=== PATIENT | female | born 1980 | race African-American/Black ===

== ENCOUNTER 2019-01-07 09:31 | Inpatient (IN) ==
[2019-01-07] MEDS ORDERED: NS 1,000 ML IV ONE (10:08)
[2019-01-07] MEDS ORDERED: HUMULIN R IV ONE (10:08)
--- NOTE | 2019-01-07 10:44 | Diag Imaging Result Doc PS360 ---
EXAM: US NON VASC EXTREMITY LIMITED HISTORY: Possible abscess TECHNIQUE: Limited ultrasound of the left upper back COMPARISON: None. FINDINGS: Ultrasound over the area of concern in the left back performed. No solid mass, cyst, or other irregular fluid collection identified. IMPRESSION: Negative exam. Electronically signed by Huang Mariscal 01/07/2019 10:42 AM
--- NOTE | 2019-01-07 10:51 | PROVIDER DOCUMENTATION ---
HPI-General Adult - General Chief Complaint: High Blood Sugar Stated Complaint: insect bite Time Seen by Provider: 01/07/19 09:51 Source: patient Allergies/Adverse Reactions: Patient Allergies Allergy/AdvReac Type Severity Reaction Status Date / Time No Known Allergies Allergy Verified 01/23/17 15:11 Home Medications: Home Medication List Medication Instructions Recorded Confirmed Last Taken Type Albuterol Sulfate Inhaler 2 puff INH Q6H PRN PRN 09/04/12 01/23/17 06/13/15 History [Ventolin Hfa] Amlodipine [Norvasc] 10 mg PO DAILY 09/04/12 01/23/17 06/13/15 History Insulin Glargine [Lantus] 40 unit SQ BID 09/04/12 01/23/17 06/13/15 History Losartan/Hctz [Hyzaar 50/12.5 mg] 1 each PO DAILY 09/04/12 01/23/17 06/13/15 History SIMVAstatin [Zocor] 10 mg PO QHS 09/04/12 01/23/17 06/13/15 History Albuterol [Albuterol Neb] 1 unit NEB BID 03/02/15 01/23/17 06/13/15 History Insulin Aspart [Novolog Flexpen] 100 unit SQ DIRECTED 03/02/15 01/23/17 06/13/15 History Omeprazole 20 mg PO DAILY #20 tablet. 06/13/15 01/23/17 Unknown Rx Ibuprofen [Motrin] 800 mg PO Q8H PRN PRN #20 tablet 01/23/17 Unknown Rx Omeprazole [Prilosec] 20 mg PO DAILY@0700 #20 capsule 01/23/17 Unknown Rx Penicillin V Potassium 500 mg PO BID #20 tablet 01/23/17 Unknown Rx Tramadol [Ultram] 50 mg PO Q8HR #20 tablet 01/23/17 Unknown Rx - History of Present Illness -Gen Adult Nature of Presenting Problems: Pt. is 38yof that presents with c/o sore spot on her back that she noticed this morning. She reports it just showed up and denies any known injury. Pt. reports she is diabetic and her blood sugar was high this morning. She has no other complaints. Location of Pain/Injury: reports: back. denies: none, head, face, mouth, neck, chest, upper extremity, hand(s), abdomen, pelvis, genitalia, lower extremity, feet, upper body, lower body, generalized, other Pain Radiation: reports: no radiation. denies: arm(s), back, buttocks, chest, epigastric, feet, groin, jaw, flank (L), legs (lower), LLQ, LUQ, neck, periumbilical, flank (R), RLQ, RUQ, shoulder(s), scapula, scrotal, sternal notch, suprapubic, legs (upper), urethral, vaginal, other Quality of Pain: reports: aching. denies: burning, cramping, pressure, sharp, throbbing, tightness Severity: reports: moderate. denies: mild, severe Onset/Duration: reports: abrupt, this morning Timing: reports: still present. denies: improving, intermittent, getting worse Context/Activities at Onset: reports: none. denies: light activity, moderate activity, vigorous activity, recent emotional stress, recent physical stress, recent trauma history, possible bad food, cold exposure, eating, out of country travel, rest, sleep, sexual activity, other Modifying Factors: improves with: nothing. worse with: palpation Associated Symptoms: reports: rash (There is a large linear erythemic area on the left mid back that is indurated and hot to the touch with tenderness to palpation. There are no raised areas noted.). denies: denies symptoms, anxiety, arm pain, back/neck pain, chest pain, constipation, cough, diaphoresis, diarrhea, dizziness, EENT symptoms, fatigue, fever/chills, genitourinary problems, headaches, heartburn, joint pain, loss of appetite, malaise, muscle aches, sinus congestion/drainage, nausea, seizure, shortness of breath, sensory/motor loss, pain with inspiration, swelling/mass in abdomen, syncope, v omiting, weakness, trouble walking, other Similar Symptoms Previously?: No Recently seen or treated by another doctor?: No - Diabetes Related Context Context: reports: high blood sugar Review of Systems - Adult - REVIEW OF SYSTEMS - ADULT Constitutional: reports: no symptoms reported Eyes: reports: no symptoms reported Ears, Nose, Mouth & Throat: reports: no symptoms reported Cardiovascular: reports: no symptoms reported Respiratory: reports: no symptoms reported Gastrointestinal: reports: no symptoms reported Genitourinary: reports: no symptoms reported Musculoskeletal: reports: no symptoms reported Integumentary: reports: see HPI, skin thickening (There is a large linear erythemic area on the left mid back that is indurated and hot to the touch with tenderness to palpation. There are no raised areas noted.). denies: hair loss, mole changes, rash Neurological: reports: no symptoms reported Psychiatric: reports: no symptoms reported Past History - Adult - PAST MEDICAL HISTORY-ADULT Review of Records: reports: Old Records Reviewed, Nursing Assessment Review, Medications Reviewed, Social history reviewed & non-contributory. Major Childhood Illnesses: reports: denies history Cardiovascular: reports: HTN, hyperlipidemia Respiratory: reports: asthma Gastrointestinal: reports: denies history Obstetrical/Gynecological: reports: denies history Genitourinary: reports: denies history Musculoskeletal: reports: denies history Neurological: reports: denies history Endocrine/Immune: reports: Diabetes Other Conditions: reports: denies history - PRIOR SURGERIES/PROCEDURES Surgical/Procedure History: reports: none - IMMUNIZATION STATUS Childhood Immunizations: See Nurse Assessment Flu Vaccine: See Nurse Assessment - FAMILY HISTORY Family History: reviewed, not pertinent - SOCIAL HISTORY Smoking: denies Physical Exam-General - PHYSICAL EXAM-ADULT Initial Vital Signs Reviewed: Yes - CONSTITUTIONAL General Appearance: alert, no apparent distress, obese. negative: anxious, obt unded, combative - EYES Eyes: PERRL/EOMI, pink conjunctivae - HEAD, EARS, NOSE, MOUTH & THROAT HENMT: normocephalic/atraumatic, moist mucous membranes - NECK Neck: non-tender, full range of motion, supple, normal inspection. negative: lymphadenopathy, trachial deviation, thyromegaly - RESPIRATORY Respiratory: lungs clear, normal breath sounds - CARDIOVASCULAR Cardiovascular: normal peripheral pulses, regular rate, rhythm, no edema - GASTROINTESTINAL (ABDOMEN) Abdominal Exam: normal bowel sounds, non tender, soft - LYMPHATIC Lymphatic: no adenopathy. negative: axilla node tender, cervical node tenderness - MUSCULOSKELETAL Back Exam: normal inspection, no CVA tenderness, no vertebral tenderness Extremity: normal range of motion, non-tender, normal gait, normal inspection Peripheral Pulses: radial (R): 2+, radial (L): 2+ - SKIN Integumentary: erythema (There is a large linear erythemic area on the left mid back that is indurated and hot to the touch with tenderness to palpation. There are no raised areas noted.), tenderness (There is a large linear erythemic area on the left mid back that is indurated and hot to the touch with tenderness to palpation. There are no raised areas noted.), warm (There is a large linear erythemic area on the left mid back that is indurated and hot to the touch with tenderness to palpation. There are no raised areas noted.). negative: cyanosis, jaundice, pallor - NEUROLOGIC Neurologic: grossly normal, no motor/sensory deficits. negative: aphasia, facial droop, focal weakness, motor weakness, sensory deficit - PSYCHIATRIC Psych/Mental Status: normal mood/affect, normal thought content, normal thought process, oriented x 3. negative: anxious, paranoid, tearful Progress - PLAN OF CARE/RESULTS Progress/Plan/Lab Results: Vital Signs - 8 hr 01/07/19 09:37 01/07/19 10:12 Temperature 98.1 F Pulse Rate 95 H 96 H Respiratory Rate 19 18 Blood Pressure 155/81 140/77 O2 Sat by Pulse Oximetry 97 99 Laboratory Results - last 24 hr 01/07/19 09:40 POC Glucose 366 H Orders Category Date Time Status Saline Loc NOW Care 01/07/19 10:07 Active US NON VASC EXTREMITY LIMITED [US] Stat Exams 01/07/19 10:09 Completed ACETONE SERUM [CHEM] Stat Lab 01/07/19 10:08 Uncollected BLOOD CULTURE [BLDCUL] Stat Lab 01/07/19 10:08 Uncollected CBC WITH ELECTRONIC DIFF [HEME] Stat Lab 01/07/19 10:08 Uncollected COMPREHENSIVE METABOLIC PANEL [CHEM] Stat Lab 01/07/19 10:08 Uncollected LACTATE, PLASMA [CHEM] Stat Lab 01/07/19 10:08 Uncollected URINALYSIS W/POSS RFLX CULT [URINALYSIS] Stat Lab 01/07/19 10:08 Uncollected 0.9% Sodium Chloride Inj [Ns] 1,000 ml Med 01/07/19 10:08 Active IV 999 mls/hr Insulin Human Regular [Humulin R] Med 01/07/19 10:08 Discontinued 10 unit IV NOW ONE Dr. Royal at bedside for evaluation Laboratory Tests 01/07/19 01/07/19 01/07/19 09:40 10:50 10:50 WBC 14.53 H RBC 4.17 L Hgb 11.0 L Hct 35.1 L MCV 84.2 MCH 26.4 L MCHC 31.3 L RDW Std Deviation 13.4 Plt Count 453 H MPV 9.8 Immature Gran % (Auto) 0.6 H Neut % (Auto) 74.4 Lymph % (Auto) 13.4 L [place] % (Auto) 10.2 H Eos % (Auto) 1.2 Baso % (Auto) 0.2 Immature Gran # (Auto) 0.09 H Neut # (Auto) 10.81 H Lymph # (Auto) 1.94 [place] # (Auto) 1.48 H Eos # (Auto) 0.18 Baso # (Auto) 0.03 Sodium 137 Potassium 4.2 Chloride 99 Carbon Dioxide 20 L Anion Gap 18 BUN 13 Creatinine 1.2 H Estimated GFR/1.73 m2 > 60 BUN/Creatinine Ratio 11 Glucose 384 H POC Glucose 366 H Calculated Osmolality 290 Calcium 8.8 Total Bilirubin 0.34 AST 19 ALT 15 Alkaline Phosphatase 77 Total Protein 8.0 Albumin 3.6 Globulin 4.4 Albumin/Globulin Ratio 0.8 Urine Source Urine Color Urine Turbidity Urine pH Ur Specific [place] Urine Protein Ur Glucose (Stick) Ur Ketones (Stick) Urine Blood Urine Nitrite Urine Bilirubin Urobilinogen Dipstick Urine Leukocytes Urine WBC (Auto) Urine RBC (Auto) U Epithel Cells (Auto) Urine Bacteria (Auto) Urine Crystals Small Round Cells Urine Casts Urine Yeast-like Cells Acetone Level NEGATIVE 01/07/19 01/07/19 11:40 12:02 WBC RBC Hgb Hct MCV MCH MCHC RDW Std Deviation Plt Count MPV Immature Gran % (Auto) Neut % (Auto) Lymph % (Auto) [place] % (Auto) Eos % (Auto) Baso % (Auto) Immature Gran # (Auto) Neut # (Auto) Lymph # (Auto) [place] # (Auto) Eos # (Auto) Baso # (Auto) Sodium Potassium Chloride Carbon Dioxide Anion Gap BUN Creatinine Estimated GFR/1.73 m2 BUN/Creatinine Ratio Glucose POC Glucose 309 H Calculated Osmolality Calcium Total Bilirubin AST ALT Alkaline Phosphatase Total Protein Albumin Globulin Albumin/Globulin Ratio Urine Source CLEAN CATCH Urine Color YELLOW Urine Turbidity CLEAR Urine pH 6.5 Ur Specific [place] 1.026 Urine Protein NEGATIVE Ur Glucose (Stick) >1000 A Ur Ketones (Stick) TRACE A Urine Blood NEGATIVE Urine Nitrite NEGATIVE Urine Bilirubin NEGATIVE Urobilinogen Dipstick NORMAL Urine Leukocytes NEGATIVE Urine WBC (Auto) <10 Urine RBC (Auto) <10 U Epithel Cells (Auto) <10 Urine Bacteria (Auto) NEGATIVE Urine Crystals NONE SEEN Small Round Cells NONE SEEN Urine Casts NONE SEEN Urine Yeast-like Cells NONE SEEN Acetone Level Discussed results and plan of care with patient. Patient agrees with plan and verbalizes understanding. Result Diagrams: 01/07/19 10:50 01/07/19 10:50 - ULTRASOUND (By Radiology) 1 US Study: other ([facility] [address] , [address], [place] [address] Department of Imaging Patient: MIRNA ASTUDILLO Date: #: [id number] : 1980ADM [id number] Age/Sex: 38/FRoom/Bed: Loc: ED Ordering Physician: Rebeca Hollingsworth Family Physician: None,PCP Reason for Procedure: Possible abscess ___ Signed EXAM: US NON VASC EXTREMITY LIMITED HISTORY: Possible abscess TECHNIQUE: Limited ultrasound of the left upper back COMPARISON: None. FINDINGS: Ultrasound over the area of concern in the left back performed. No solid mass, cyst, or other irregular fluid collection identified. IMPRESSION: Negative exam. Electronically signed by Huang Mariscal 01/07/2019 10:42 AM 01/07/19 1042 Interpreting Physician: Huang Mariscal MD Dictated Date/Time: 01/07/19 1041 cc: Rebeca Hollingsworth; None,PCP) US Results: See note - CONSULTS/PCP/HOSPITALIST Notification #1 *Consult/PCP/Hospitalist*: Adina HENSLEY for Dr. Balderas Time Discussed: 13:12 Reason/Comments: Admission Consult Disposition: Will see in ED, Admit Departure - Departure Date of Disposition Decision: 01/07/19 Time of Disposition Decision: 12:59 DIAGNOSIS: Hyperglycemia due to type 1 diabetes mellitus Cellulitis Qualifiers: Site of cellulitis: trunk Site of cellulitis of trunk: back Qualified Code(s): L03.312 - Cellulitis of back [any part except buttock] Disposition: ADMITTED INPATIENT 09 Certified Medical Emergency: Emergent Condition: Stable Additional Freetext Instructions: ED Follow Up Instructions: You have been treated by a care provider in the Emergency Department. These instructions are being provided to you so you can have an understanding of how to care for yourself upon discharge. Upon discharge from the Emergency Department, you are responsible for making arrangements for follow-up care by a physician of your choice. Take all prescribed medications as directed. Return to the Emergency Department immediately for any new or worsening symptoms. You may call the Physician Referral phone number at [phone] to obtain a list of Physicians who are taking new patients. Referrals and Follow-Ups: None,PCP [Primary Care Provider] - - Critical Care Note This patient required my direct & personal management of CC.: No Attestation - Physician/ JESSICA Attestation Patient care was provided by Advanced Practice Provider:: Yes Advanced Practice Provider:: Rebeca Hollingsworth Advanced Practice Provider documentation review:: The Mid-level provider documentation, treatment plan and medical decision making was reviewed by the physician who agrees with all treatment and medical decision making by the P. The physician spent face to face time with patient:: Yes Advanced Practice Provider documentation review:: Supervising physician onsite and consulted in the evaluation and care of this patient. The physician did have a face to face encounter with the patient.
[2019-01-07 11:12] LABS: BASO# 0.03 X1000 (0.0-0.2); BASO% 0.2 % (0.0-0.8); EOS# 0.18 X1000 (0.0-0.7); EOS% 1.2 % (0.0-10.0); HEMATOCRIT 35.1 % (37.0-47.0); IMM GRAN# 0.09 X1000 (0.0-0.04); IMM GRAN% 0.6 % (0.0-0.5); LYMPH# 1.94 X1000 (1.2-3.4); LYMPH% 13.4 % (20.5-51.1); MCH 26.4 PG (27-31); MCHC 31.3 g/dL (33-37); MCV 84.2 FL (81-99); MONO# 1.48 X1000 (0.11-0.59); MONO% 10.2 % (1.7-9.3); MPV 9.8 FL (7.4-10.4); NEUT# 10.81 X1000 (1.4-6.5); NEUT% 74.4 % (42.2-75.2); PLT 453 X1000 (130-400); RBC 4.17 XMIL (4.2-5.4); RDW 13.4 % (11.5-14.5); WBC 14.53 X1000 (4.8-10.8)
[2019-01-07 11:20] LABS: ACETONE SERUM NEGATIVE (NEGATIVE)
[2019-01-07] MEDS ORDERED: VANCOMYCIN 1 GM/NS 1 GM/250 ML IVPB IV ONE (11:27)
[2019-01-07 11:28] LABS: AGAP 18; ALB/GLOB RATIO 0.8; ALBUMIN 3.6 g/dL (3.5-5.0); ALKALINE PHOSPHATASE 77 U/L (32-104); BUN 13 mg/dL (8-22); CALCIUM 8.8 mg/dL (8.8-10.2); CHLORIDE 99 mmol/L (98-107); COSMO 290; CREATININE 1.2 mg/dL (0.5-0.9); ESTIMATED GFR > 60; GLUCOSE 384 mg/dL (70-104); GOT 19 U/L (10-30); GPT 15 U/L (10-36); POTASSIUM 4.2 mmol/L (3.5-5.1); SODIUM 137 mmol/L (136-145); TCO2 20 mmol/L (25-35); TOTAL BILIRUBIN 0.34 mg/dL (0.20-1.00)
[2019-01-07 11:48] LABS: URINE SOURCE CLEAN CATCH
[2019-01-07 11:53] LABS: BILIRUBIN URINE NEGATIVE (NEGATIVE); BLOOD URINE NEGATIVE (NEGATIVE); COLOR YELLOW; GLUCOSE URINE >1000 mg/dL (NEGATIVE); KETONE URINE TRACE mg/dL (NEGATIVE); LEUKOCYTES URINE NEGATIVE (NEGATIVE); NITRITE URINE NEGATIVE (NEGATIVE); PH URINE 6.5; PROTEIN URINE NEGATIVE (NEGATIVE); SP GRAVITY URINE 1.026; TURBIDITY URINE CLEAR (CLEAR); UROBILINOGEN URINE NORMAL (NORMAL)
[2019-01-07 11:57] LABS: UR EPITHELIAL CELLS <10 /HPF (<10); URINE BACTERIA NEGATIVE /HPF; URINE RBC <10 /HPF (<10); URINE WBC <10 /HPF (<10)
[2019-01-07 12:07] LABS: URINE CASTS NONE SEEN; URINE YEAST NONE SEEN
[2019-01-07 12:08] LABS: URINE CRYSTALS NONE SEEN; URINE SMALL ROUND CELLS NONE SEEN
[2019-01-07] MEDS ORDERED: LANTUS INSULIN SUBQ ONE (13:18)
[2019-01-07] MEDS ORDERED: LR 1,000 ML IV ONE (13:18)
[2019-01-07] MEDS ORDERED: TYLENOL PO PRN (13:24)
[2019-01-07] MEDS ORDERED: ZOFRAN IV PRN (13:24)
[2019-01-07 13:28] LABS: INR 1.04; PROTIME 14.4 Seconds (11.0-16.0)
[2019-01-07 13:29] LABS: PTT 40.4 Seconds (22.3-41.8)
[2019-01-07] MEDS ORDERED: CLINDAMYCIN 300 MG in NS 50 ML IV SCH (13:30)
[2019-01-07] MEDS ORDERED: ULTRAM PO PRN (14:15)
[2019-01-07 15:13] LABS: HEMOGLOBIN A1C 10.4 % (4.8-6.0)
[2019-01-07] MEDS ORDERED: HUMALOG SUBQ SCH (16:00)
[2019-01-07] MEDS: LOVENOX SUBQ SCH (16:26)
[2019-01-07] MEDS: HUMALOG SUBQ SCH ×4 (16:48→20:42)
[2019-01-07 17:16] LABS: AGAP 12; BUN 12 mg/dL (8-22); CHLORIDE 105 mmol/L (98-107); COSMO 280; ESTIMATED GFR > 60; GLUCOSE 185 mg/dL (70-104); POTASSIUM 3.8 mmol/L (3.5-5.1); SODIUM 138 mmol/L (136-145); TCO2 21 mmol/L (25-35)
[2019-01-07] MEDS: LANTUS INSULIN SUBQ SCH (20:42)
[2019-01-07] MEDS: ZOCOR PO SCH (20:43)
[2019-01-07] MEDS: CLINDAMYCIN 600 MG in NS 50 ML IV SCH (20:47)
[2019-01-07] MEDS: NORCO-5 PO PRN (22:53)
[2019-01-08] MEDS: CLINDAMYCIN 600 MG in NS 50 ML IV SCH ×3 (05:03→21:06)
[2019-01-08] MEDS: PRILOSEC PO SCH (06:23)
[2019-01-08] MEDS: HUMALOG SUBQ SCH ×9 (06:25→21:20)
[2019-01-08 07:26] LABS: BASO# 0.03 X1000 (0.0-0.2); BASO% 0.2 % (0.0-0.8); EOS# 0.24 X1000 (0.0-0.7); EOS% 1.6 % (0.0-10.0); HEMATOCRIT 33.2 % (37.0-47.0); HEMOGLOBIN 10.4 g/dL (12.0-16.0); IMM GRAN# 0.11 X1000 (0.0-0.04); IMM GRAN% 0.7 % (0.0-0.5); LYMPH# 2.02 X1000 (1.2-3.4); LYMPH% 13.2 % (20.5-51.1); MCH 26.6 PG (27-31); MCHC 31.3 g/dL (33-37); MCV 84.9 FL (81-99); MONO# 1.17 X1000 (0.11-0.59); MONO% 7.6 % (1.7-9.3); MPV 9.2 FL (7.4-10.4); NEUT# 11.75 X1000 (1.4-6.5); NEUT% 76.7 % (42.2-75.2); PLT 462 X1000 (130-400); RBC 3.91 XMIL (4.2-5.4); RDW 13.5 % (11.5-14.5); WBC 15.32 X1000 (4.8-10.8)
[2019-01-08 07:50] LABS: AGAP 13; ALB/GLOB RATIO 0.9; ALBUMIN 3.5 g/dL (3.5-5.0); ALKALINE PHOSPHATASE 73 U/L (32-104); BUN 10 mg/dL (8-22); CALCIUM 8.9 mg/dL (8.8-10.2); CHLORIDE 103 mmol/L (98-107); COSMO 278; ESTIMATED GFR > 60; GLUCOSE 187 mg/dL (70-104); GOT 14 U/L (10-30); GPT 13 U/L (10-36); MAGNESIUM 2.1 mg/dL (1.5-2.7); POTASSIUM 3.7 mmol/L (3.5-5.1); SODIUM 137 mmol/L (136-145); TCO2 21 mmol/L (25-35); TOTAL BILIRUBIN 0.35 mg/dL (0.20-1.00); TOTAL PROTEIN 7.4 g/dL (6.3-8.3)
[2019-01-08 07:51] LABS: CK PROFILE 120 U/L (24-173)
[2019-01-08 07:56] LABS: CHOLESTEROL 141 mg/dL (0-200); HDL 29 mg/dL (45-65); LDL 68 mg/dL; TRIGLYCERIDES 222 mg/dL (35-135); VLDL 44 mg/dL
[2019-01-08] MEDS: NORVASC PO SCH (09:08)
[2019-01-08] MEDS: HYZAAR 50/12.5 MG PO SCH ×3 (09:09→09:17)
[2019-01-08] MEDS: LANTUS INSULIN SUBQ SCH ×2 (09:25→21:23)
--- NOTE | 2019-01-08 09:26 | HISTORY AND PHYSICAL ---
PRIMARY CARE PHYSICIAN: [facility]. CHIEF COMPLAINT: Cellulitis. HISTORY OF PRESENT ILLNESS: This is a 38-year-old -[place] female who presents to the ER today with a large area to the medial to upper left back that is red, heated and warm to touch. States that she has been nauseous and thirsty, her finger stick blood sugar is greater than 300 today. States that she has had this area to her back for greater than a week. Woke up this morning and it was larger and painful and warm to touch. Denies any fever or chills. States this area has been very painful. Denies any drainage. States that she thought it was maybe a bug bite but is not for sure what though. Patient is a diabetic and blood sugars usually do stay less than 200 but today, they have been greater than 300. Patient states she has been more thirsty today and has had some nausea today after taking some Aleve for her pain. Patient does deny any fever with this pain. Patient is positive for a large area to the left to medial upper back that is warm and tender to touch. It is very edematous and reddened. Laboratory findings that were done in the ER, noted to have a white blood cell count of 14.53. Patient is noted to have a creatinine of 1.2. Initial glucose in the ER was 384. Initial lactate in the ER was 2.8. Ultrasound in the ER of the area of the back was done. It was negative. Patient was given 1 gram of vancomycin in the ER and was treated with 10 units of subcu insulin. She was given 1 liter of normal saline. There are no other acute findings at this time. PAST MEDICAL HISTORY: 1. Diabetes. 2. Hypertension. 3. Asthma. 4. Back pain. PAST SURGICAL HISTORY: section 2009. FAMILY HISTORY: Mother, diabetes. Mother and father, hypertension. SOCIAL HISTORY: The patient denies any smoking, drug or alcohol use. ALLERGIES: No known drug allergies. MEDICATIONS: 1. Albuterol nebulizers. 2. Ventolin inhalers. 3. Motrin 800 mg. 4. NovoLog FlexPen. 5. Omeprazole 20 mg p.o. 6. Penicillin V 500 mg tablets. 7. Amlodipine 10 mg tablets. 8. Lantus 40 units b.i.d. 9. Hyzaar 50/12.5 mg daily. 10.Simvastatin 10 mg daily. 11.Ultram 50 mg q.8 hours. LABS AND DIAGNOSTICS: White blood cell count 14.53, hemoglobin 11, hematocrit 35.1, platelets 453,000. Chemistry: Sodium 137, potassium 4.2, carbon dioxide 20, BUN 13, creatinine 1.2. GFR greater than 60. Glucose 384 on admission, now is 245. Total bilirubin 0.34. AST 19, ALT 15, alkaline phosphatase 77, creatinine kinase 162. Troponin less than 0.01. Plasma lactate 2.8. Acetone level is negative. Urine is positive for trace ketones and glucose greater than 1000. An ultrasound was in the ER of the left upper back. It is a negative exam. REVIEW OF SYSTEMS: A 12 point review of systems was done and was negative for everything except for what is stated in the HPI. PHYSICAL EXAMINATION: VITAL SIGNS: Temperature 98.1 degrees, pulse rate 96, respiratory rate 18, blood pressure 140/77. O2 saturation 99% on room air. Weight 219. Height 5 foot 7 inches. GENERAL: This is a well-nourished 38-year-old -[place] female lying in the bed in no acute distress. HEENT: Atraumatic, normocephalic. Pupils are equal, round, reactive to light. Mucous membranes are dry with no dentition. NECK: Supple. No lymphadenopathy. Trachea is midline. JVD is negative. CARDIOVASCULAR: No murmurs, gallops, or rubs appreciated. Regular rate and rhythm noted. RESPIRATORY: Lung sounds are equal with no chest excursion. Respirations are nonlabored with no accessory muscle usage. GASTROINTESTINAL: Abdomen is soft and nontender with bowel sounds present x4. Abdomen is nondistended. NEUROLOGICAL: Awake, alert and oriented x4. Cranial nerves intact. Follows all commands. MUSCULOSKELETAL: Full distal strength noted. No abnormalities. No deformities. EXTREMITIES: No cyanosis, clubbing. No edema. DP and PT pulses are present. SKIN: Warm, dry and intact. No rashes, bruises. There is a large area noted to the left mid to upper back that is edematous with erythema and warm to touch. ASSESSMENT: 1. Cellulitis. 2. Diabetes. 3. Acute kidney injury related to cellulitis. 4. Hypertension. PLAN: We will admit this patient to the medical floor and place this patient IVF and on clindamycin IV. Start the patient on moderate scale sliding scale insulin. Restart the patient on on her home Lantus. Start the patient on a diabetic diet. Place the patient on Telemetry and monitor the patient closely. We will reorder labs in the a.m. Dictated by AYDEN Rodriguez for Paul Balderas MD cc: Paul Balderas MD I agree with most components of history, physical, assessment and plan. A separate addendum has been dictated. NIRALI
--- NOTE | 2019-01-08 09:54 | HISTORY AND PHYSICAL ---
ADDENDUM REPORT Agree with most components of history, physical, assessment and plan. In brief, Ms. Gaston is a 38- year-old woman with past medical history of insulin dependent diabetes mellitus type 2, essential hypertension, hyperlipidemia, who came in with chief complaint of complaints of sore spot on her left back which she noticed this morning. She denies any known trauma or insect bite known to her. In the emergency room, she was found to have hyperglycemia, elevated creatinine, lactic acidosis with elevated anion gap. The ultrasound of the back did not detect any abscess, though it did have cellulitis, and considering her presentation, Hospitalist Team was consulted for the management. At the time of my evaluation, the patient appears to be alert and oriented and not in any acute distress. We discussed about exam findings, management, and I answered all of her questions. The patient's family is at bedside as well. Currently, vitals, she has been afebrile with temperature of 98.3, pulse rate 91, respiratory rate 20, blood pressure 160/80, saturating 100% on room air. PHYSICAL EXAMINATION: GENERAL: Obese. Not in any acute distress. HEENT: Oral cavity is moist. LUNGS: Air entry bilaterally equal. No wheeze, rhonchi or crackles. HEART: Normal, no rub or gallop. ABDOMEN: Soft, nontender. EXTREMITIES: No lower extremity edema. NEUROLOGICAL: She is alert and oriented x3. SKIN: On the posterior back on the left reveals 15 cm horizontally and 5 cm vertically and about 4 cm depth area of erythema, warmth and induration on which there are 2 pinpoint pustules towards its right border. There is no active drainage or discharge. The area is tender to palpation. DIAGNOSTIC DATA: Labs suggestive of normocytic anemia, leukocytosis, thrombocytosis, normal coagulation profiled. Elevated anion gap, lactic acidosis. Renal failure of undetermined chronicity and hyperglycemia. Microbiology: Blood cultures are in lab. Imaging: Ultrasound of that area does not detect any abscess. ASSESSMENT: 1. Acute cellulitis of left upper back, likely from folliculitis. 2. Elevated anion gap, lactic acidosis. 3. Renal failure of unclear chronicity. 4. Hyperglycemia and history of insulin dependent diabetes mellitus. 5. Normocytic anemia. PLAN: 1. I will start the patient on intravenous clindamycin. Follow up blood culture results. I will follow the cellulitis to see if it organizes into an abscess, at which Surgical Team would be consulted. 2. I will continue her home insulin regimen, and we will start her on sliding scale insulin as well. 3. I will continue her amlodipine for hypertension and simvastatin for hyperlipidemia, losartan/hydrochlorothiazide for hypertension and tramadol for chronic pain. Plan of care was discussed with the patient. All of her questions have been answered. cc: Paul Balderas MD
[2019-01-08] MEDS: NORCO-5 PO PRN ×2 (11:29→21:04)
[2019-01-08] MEDS: LOVENOX SUBQ SCH (14:32)
[2019-01-08] MEDS: ZOCOR PO SCH (21:11)
[2019-01-09] MEDS: CLINDAMYCIN 600 MG in NS 50 ML IV SCH ×3 (04:35→20:30)
[2019-01-09] MEDS: PRILOSEC PO SCH (06:38)
[2019-01-09 07:17] LABS: BASO# 0.04 X1000 (0.0-0.2); BASO% 0.3 % (0.0-0.8); EOS# 0.19 X1000 (0.0-0.7); EOS% 1.4 % (0.0-10.0); HEMATOCRIT 34.4 % (37.0-47.0); HEMOGLOBIN 10.7 g/dL (12.0-16.0); IMM GRAN# 0.21 X1000 (0.0-0.04); IMM GRAN% 1.5 % (0.0-0.5); LYMPH# 2.18 X1000 (1.2-3.4); LYMPH% 15.9 % (20.5-51.1); MCH 26.5 PG (27-31); MCHC 31.1 g/dL (33-37); MCV 85.1 FL (81-99); MONO# 1.12 X1000 (0.11-0.59); MONO% 8.2 % (1.7-9.3); MPV 9.3 FL (7.4-10.4); NEUT# 9.98 X1000 (1.4-6.5); NEUT% 72.7 % (42.2-75.2); PLT 522 X1000 (130-400); RBC 4.04 XMIL (4.2-5.4); RDW 13.7 % (11.5-14.5); WBC 13.72 X1000 (4.8-10.8)
[2019-01-09 07:38] LABS: AGAP 12; BUN 15 mg/dL (8-22); CALCIUM 8.8 mg/dL (8.8-10.2); CHLORIDE 101 mmol/L (98-107); COSMO 282; CREATININE 1.1 mg/dL (0.5-0.9); ESTIMATED GFR > 60; GLUCOSE 233 mg/dL (70-104); SODIUM 137 mmol/L (136-145); TCO2 24 mmol/L (25-35)
[2019-01-09] MEDS: HUMALOG SUBQ SCH ×8 (07:40→20:42)
[2019-01-09] MEDS: NORCO-5 PO PRN ×2 (09:32→18:53)
[2019-01-09] MEDS: HYZAAR 50/12.5 MG PO SCH ×2 (09:32→09:34)
[2019-01-09] MEDS: NORVASC PO SCH (09:32)
[2019-01-09] MEDS: LANTUS INSULIN SUBQ SCH ×2 (09:34→20:40)
[2019-01-09] MEDS ORDERED: XYLOCAINE-MPF 2% ONE (12:27)
[2019-01-09] MEDS ORDERED: DIPRIVAN 1% ONE (12:28)
[2019-01-09] MEDS ORDERED: VERSED ONE (12:29)
[2019-01-09] MEDS ORDERED: SENSORCAINE 0.5%-EPI 1:200,000 ONE (12:50)
[2019-01-09] MEDS ORDERED: FENTANYL ONE (13:05)
[2019-01-09] MEDS: MORPHINE ONE ×3 (13:35→13:50)
[2019-01-09] MEDS ORDERED: NORCO-5 ONE (14:01)
[2019-01-09] MEDS ORDERED: DIFLUCAN PO ONE (14:45)
[2019-01-09] MEDS: LOVENOX SUBQ SCH (15:01)
--- NOTE | 2019-01-09 15:25 | PROGRESS NOTE ---
DATE: 01/09/2019 INTERVAL HISTORY: Yesterday I expressed out some of the pus from her left back abscess. However, it was a lot coming out, so I had called the surgeon doctor, and it looks like the patient is. Scheduled to go to the OR for incision and drainage SUBJECTIVE: She denies any fevers, chills. She denies undue pain on the back abscess. OBJECTIVE: Vitals: Temperature 98.2 degrees, pulse of 98, respiratory rate 21, blood pressure 130/79, saturating 100% on room air. Morbidly obese. Not in acute distress. Oral cavity is moist. Air entry bilaterally equal. No wheeze, rhonchi, rales. S1, S2 normal. No murmur, rub, gallop. Abdomen is soft, nontender. No lower extremity edema. She is alert and oriented x3. Skin: The size of her cellulitis or abscess seems to have decreased on antibiotics. It is now measuring about 12 cm horizontally, 5 cm vertically, and about 2 to 3 cm deep. There are some pustules that are popping up, though it is not draining today. LABORATORY DATA: Laboratories suggestive of improving leukocytosis, she does have normocytic anemia, thrombocytosis. Creatinine of 1.1. MICROBIOLOGY: Blood culture: No growth to date. ASSESSMENT AND PLAN: 1. Acute cellulitis, which has turned into abscess on her left upper back, likely from local folliculitis. Continue intravenous clindamycin and follow up Surgery recommendation post incision and drainage. 2. Hyperglycemia with history of insulin-dependent diabetes mellitus, currently well controlled. Continue current dose of insulin glargine, insulin lispro, and sliding scale insulin. 3. Others: Continue amlodipine, losartan, hydrochlorothiazide for essential hypertension; simvastatin for hyperlipidemia; acetaminophen and [place] for back site pain; omeprazole for gastroesophageal reflux disease. DISPOSITION: I will await final postoperative surgery recommendation and will anticipate discharge in the next 24 hours. Plan of care discussed with the patient. All of her questions have been answered. cc: Paul Balderas MD [facility]
[2019-01-09] MEDS: ZOCOR PO SCH (20:42)
--- NOTE | 2019-01-09 20:45 | OPERATIVE NOTE ---
PROCEDURE DATE: 01/09/2019 PREOPERATIVE DIAGNOSIS: Soft tissue infection mid left back. POSTOPERATIVE DIAGNOSIS: Soft tissue infection mid left back. PRINCIPAL PROCEDURE: 1. Incision and drainage of soft tissue infection mid left back. 2. Debridement of skin, subcutaneous tissue and muscle using forceps and Jolley scissors of abscess cavity mid left back. SURGEON: Leonora Foster MD. ANESTHESIA: IV sedation. ESTIMATED BLOOD LOSS: 75 mL. DRAINS: None. INDICATIONS: Kelsea Gaston is a 38-year-old black female who has diabetes. She has developed a soft tissue infection in her mid left back. She has been hospitalized. She has been receiving IV antibiotics, but we felt she needed incision and drainage of this abscess. FINDINGS: She had an oblique soft tissue infection mid left back. We performed an extensive I and D, and thick, mostly white yellowish pus was removed. Cultures were taken. We packed the wound open after irrigation and debridement. DESCRIPTION OF PROCEDURE: The patient was brought to the operating room. She was placed in the right lateral decubitus position. Her left back was prepped and draped in a sterile field. She received IV sedation. I used a 10 blade scalpel to make an incision involving her skin and soft tissue mid left back overlying the swollen indurated area, and purulence was drained. We made sure that the abscess cavity was completely opened using the 10 blade scalpel. We used warm irrigation to thoroughly irrigate out the abscess cavity. We used forceps and Jolley scissors to debride any necrotic tissue from skin and subcutaneous tissue and muscle. We then packed the wound open with a large iodoform gauze, followed by dry dressing and an ABD pad. She tolerated the procedure well with plans for her to go to the recovery room and then return to the floor. cc: Leonora Foster MD
--- NOTE | 2019-01-09 21:39 | PROGRESS NOTE ---
DATE: 01/08/2019 INTERVAL HISTORY: No acute events overnight. SUBJECTIVE: Patient states that the back has been spontaneously draining. She denies any fevers, chills, shortness of breath, or chest pain. We discussed about lab findings, better blood sugar control, and possibly calling a surgeon doctor. VITAL SIGNS: Currently, temperature of 98.4 degrees, pulse 88, respiratory rate 29, blood pressure 125/65, saturating 98% room air. PHYSICAL EXAMINATION: General: Does not appear in acute distress. Oral Cavity: Moist. Lungs: Air entry bilaterally equal. No wheeze or crackles. Heart: S1, S2 normal. No murmur or gallop. Abdomen: Soft, nontender, obese. Extremities: No lower extremity edema. Neurologic: She is alert nd oriented x3. Back: Examination reveals about 15 cm horizontal and 5 cm vertical and about 3 to 4 cm deep area of erythema, induration, warmth. There are a couple of pustules which are draining. I pressed on the area to drain out as much as I could from the 2 pinpoint pustules; however, there was a lot of drain coming out. The lateral part of this induration is not draining, and I think she may require incision and drainage, for which I will consider Surgery consult. LABS: She continues to have leukocytosis, normocytic anemia, thrombocytosis. Her creatinine has gone down with normal kidney function. Blood sugars are in acceptable range. Lactic acidosis has resolved. MICROBIOLOGY: Blood cultures are in Lab and so far have not shown any growth. ASSESSMENT AND PLAN: 1. Acute cellulitis and now abscess of left upper back, likely from folliculitis, which I tried to drain at bedside as it was spontaneously draining. Continue intravenous clindamycin. Follow up final blood culture results. Surgery has been consulted to see if it would need incision and drainage. 2. Elevated anion gap lactic acidosis from cellulitis, now resolved. Her anion gap is normal. 3. Kidney dysfunction because of cellulitis, resolved after intravenous fluids. 4. Hyperglycemia and history of insulin-dependent diabetes mellitus, currently under well control. Continue sliding scale insulin, her home Lantus and NovoLog doses. 5. Normocytic anemia, currently in acceptable range. 6. Essential hypertension. Continue home amlodipine and losartan; simvastatin for hyperlipidemia. 7. Disposition. I will monitor the patient for another 24 hours for a need for intravenous antibiotics, and follow up with final blood culture results tomorrow. If they are negative, my plan is to discharge the patient home. Plan of care was discussed with her. All of her questions have been answered. cc: Paul Balderas MD
[2019-01-10] MEDS: NORCO-5 PO PRN ×4 (02:33→21:58)
[2019-01-10] MEDS: CLINDAMYCIN 600 MG in NS 50 ML IV SCH ×3 (05:28→21:58)
[2019-01-10] MEDS: PRILOSEC PO SCH (06:06)
[2019-01-10] MEDS: HUMALOG SUBQ SCH ×7 (08:13→21:59)
[2019-01-10] MEDS: HYZAAR 50/12.5 MG PO SCH (08:17)
[2019-01-10] MEDS: NORVASC PO SCH (08:21)
[2019-01-10] MEDS: LANTUS INSULIN SUBQ SCH ×2 (10:32→21:59)
[2019-01-10] MEDS ORDERED: VANCOMYCIN IV PER PHARMACY MISC SCH (13:30)
[2019-01-10] MEDS ORDERED: VANCOMYCIN 2,200 MG in NS 500 ML IV SCH ×2 (15:00→21:30)
[2019-01-10] MEDS ORDERED: DIPRIVAN 1% ONE (15:16)
[2019-01-10] MEDS ORDERED: XYLOCAINE-MPF 2% ONE (15:17)
[2019-01-10] MEDS ORDERED: FENTANYL ONE (15:18)
[2019-01-10] MEDS ORDERED: VERSED ONE (15:28)
--- NOTE | 2019-01-10 15:29 | PROGRESS NOTE ---
DATE: 01/10/2019 SUBJECTIVE: Today Ms. Gaston refers to be doing okay. Still hurting at the left side of her back where the incision was made. OBJECTIVE: Vital signs: Blood pressure is 129/71, pulse of 81, respirations 20, temperature 98.8 degrees. The patient is saturating 98% on room air. General exam: Ms. Gaston is a 38-year-old female. She was in bed, no distress. HEENT: Mucosa is pink, minimally dry. Chest: Good air entry bilaterally. No crepitations. No rhonchi. Cardiovascular: Regular rate and rhythm. Abdomen: Soft, nontender. Extremities: No pedal edema. RESEARCH PROJECT COORDINATOR: Patient is awake, alert, and oriented. Musculoskeletal: There is a newly dressed wound on the left side of the mid back. The dressing looks minimally soiled. LABORATORY DATA: No CBC for this morning. No chemistry. The back drain sample is growing gram- positive cocci. ASSESSMENT AND PLAN: 1. Skin and soft tissue abscess associated with cellulitis to the left mid back. The patient is status post I D. Culture is growing gram-positive cocci. The patient was started on clindamycin. I have added vancomycin until we know the ID and sensitivity of the gram- positive cocci. 2. Severe uncontrolled diabetes mellitus with presenting A1c of 10.4. We will make some adjustments to the patient's current insulin regimen. 3. Mild clinical volume depletion. We will start the patient on gentle overnight IV fluids. 4. Hypertension. Will continue with the home medications. 5. Dyslipidemia. Patient is on atorvastatin. cc: Gonzalo Smith MD
[2019-01-10] MEDS ORDERED: NEO-SYNEPHRINE ONE (16:20)
--- NOTE | 2019-01-10 17:00 | PROGRESS NOTE ---
DATE: 01/10/2019 Ms. Kelsea Gaston is postop day 1 from an incision and drainage of soft tissue abscess, left back. At the time of surgery we packed her wound open. She did have some bleeding from the wound and her dressing had to be reinforced postoperatively. This afternoon I removed the packing and she began oozing again for her wound, requiring repacking of the wound with Kerlix. She just ate lunch so if the bleeding stopped, what I will plan to do is take her to surgery tomorrow and have a dressing change under anesthesia so that we can be sure she gets good irrigation of this wound and packing and controlling any bleeding necessary. cc: Leonora Foster MD
[2019-01-10] MEDS: LR 1,000 ML IV SCH (18:30)
--- NOTE | 2019-01-10 21:34 | OPERATIVE NOTE ---
PROCEDURE DATE: 01/10/2019 PREOPERATIVE DIAGNOSIS: Bleeding from left back wound after removal of packing at the bedside. POSTOPERATIVE DIAGNOSIS: Bleeding from left back wound after removal of packing at the bedside. PRINCIPAL PROCEDURE: Dressing change under anesthesia with control of hemorrhage. SURGEON: Leonora Foster MD. ANESTHESIA: General. ESTIMATED BLOOD LOSS: 50 mL. DRAINS: None. INDICATIONS: Kelsea Gaston is a 38-year-old black female who developed a soft tissue infection left back. Yesterday I performed incision and drainage and packed her wound open with iodoform gauze. This afternoon I removed this gauze at the bedside up on [address] and she began bleeding from the wound, and I could not stop it with packing, and I felt we should bring her back to the operating room for dressing change under anesthesia and to stop the oozing from her wound. DESCRIPTION OF PROCEDURE: The patient was brought to the operating room, placed supine, received general anesthesia, and was placed in the right lateral decubitus position. After being intubated, her left back was prepped and draped in the sterile field. I removed the packing. We saw the area of bleeding in her soft tissue, and I used several [id number] 2-0 Vicryl stitches to control this bleeding. We also used cautery to control bleeding. We thoroughly irrigated out the wound with warm saline and made sure there was no evidence of ongoing bleeding. Again, I packed the wound with iodoform gauze followed by dry dressing and Medipore tape. She tolerated the procedure well, and she went to the recovery room with plans for her to return to the floor. I spoke with her friend after surgery. cc: Leonora Foster MD
[2019-01-10] MEDS: ZOCOR PO SCH (21:58)
[2019-01-11] MEDS: PRILOSEC PO SCH (06:44)
[2019-01-11] MEDS: CLINDAMYCIN 600 MG in NS 50 ML IV SCH (06:45)
[2019-01-11] MEDS: LR 1,000 ML IV SCH (06:45)
[2019-01-11] MEDS: HUMALOG SUBQ SCH ×2 (06:46→09:05)
[2019-01-11 07:23] LABS: BASO% 0.2 % (0.0-0.8); EOS# 0.17 X1000 (0.0-0.7); HEMATOCRIT 29.5 % (37.0-47.0); IMM GRAN% 4.1 % (0.0-0.5); LYMPH# 2.81 X1000 (1.2-3.4); LYMPH% 16.1 % (20.5-51.1); MCHC 30.5 g/dL (33-37); MCV 85.3 FL (81-99); MONO# 1.13 X1000 (0.11-0.59); MONO% 6.5 % (1.7-9.3); MPV 8.9 FL (7.4-10.4); NEUT# 12.55 X1000 (1.4-6.5); NEUT% 72.1 % (42.2-75.2); PLT 584 X1000 (130-400); RBC 3.46 XMIL (4.2-5.4); RDW 13.8 % (11.5-14.5); WBC 17.42 X1000 (4.8-10.8)
[2019-01-11 07:24] LABS: BASO# 0.04 X1000 (0.0-0.2); IMM GRAN# 0.72 X1000 (0.0-0.04)
[2019-01-11 07:46] LABS: AGAP 13; ALB/GLOB RATIO 0.9; ALBUMIN 3.6 g/dL (3.5-5.0); ALKALINE PHOSPHATASE 75 U/L (32-104); BUN 18 mg/dL (8-22); CALCIUM 8.7 mg/dL (8.8-10.2); CHLORIDE 103 mmol/L (98-107); COSMO 281; CREATININE 1.1 mg/dL (0.5-0.9); ESTIMATED GFR > 60; GLUCOSE 196 mg/dL (70-104); GOT 25 U/L (10-30); GPT 13 U/L (10-36); POTASSIUM 4.2 mmol/L (3.5-5.1); SODIUM 137 mmol/L (136-145); TCO2 21 mmol/L (25-35); TOTAL BILIRUBIN 0.18 mg/dL (0.20-1.00); TOTAL PROTEIN 7.7 g/dL (6.3-8.3)
[2019-01-11] MEDS: NORVASC PO SCH (08:55)
[2019-01-11] MEDS: NORCO-5 PO PRN (08:55)
[2019-01-11] MEDS: HYZAAR 50/12.5 MG PO SCH ×2 (08:56→09:04)
[2019-01-11] MEDS ORDERED: KEFZOL 2 GM/D5W 2 GM/50 ML IVPB IV SCH (09:30)
[2019-01-11] MEDS: LANTUS INSULIN SUBQ SCH (09:35)
--- NOTE | 2019-01-11 10:55 | PROGRESS NOTE ---
DATE: 01/11/2019 SUBJECTIVE: This morning Ms. Gaston refers to be feeling a lot better. She was taken to surgery yesterday for bleeding management when the dressing was being changed at the bedside. OBJECTIVE: This morning her blood pressure is 114/69, pulse of 83, respirations 17, and temperature 97.5 degrees.General: Ms. Gaston is a 38-year-old female. She is in bed in no distress. HEENT: Mucosa is pink and moist. Anicteric. Acyanotic. Neck: Supple. Chest: Good air entry bilaterally. There were no crepitations. No rhonchi. Cardiovascular: Regular rate and rhythm. No murmurs, no rubs, no gallops. Abdomen: Soft and nontender. Bowel sounds present. Extremities: No pedal edema. INDUSTRIAL COMMERCIAL GROUNDSKEEPER: Patient is awake, alert, and oriented. Musculoskeletal: There is a dressing over the left mid back which has minimum blood stained. LABORATORY DATA: WBC 17.42, hemoglobin 9.0, and platelet count of 584,000. Chemistry is also reviewed and unremarkable. Glucose is down to 196. MICROBIOLOGY DATA: The culture from the back showing Staph aureus which is MSSA. ASSESSMENT: 1. Skin and soft tissue abscess associated with cellulitis to the left mid back. Blood cultures have shown MSSA. We have discontinued both the vancomycin and the clindamycin, and have started the patient on Ancef. This will be switched to Keflex p.o. whenever the patient is deemed stable from surgery standpoint for discharge. 2. Uncontrolled diabetes mellitus with presenting A1c of 10.4, insulin regimen has been uptitrated. Glucose levels are a lot better. 3. Clinical volume depletion improved. 4. Hypertension, controlled. 5. Dyslipidemia, controlled. PLAN: In general, I think Ms. Gaston is doing a lot better. White cell count is a little bit elevated, but I think we now know the pathogen that caused the abscess so we are going to tailor the antibiotics accordingly. I have discontinued the vancomycin and clindamycin, and started her on IV Ancef which can be switched to Keflex whenever the patient is deemed stable for discharge. I understand there was some bleeding at the surgical site yesterday. We will be waiting for surgery to evaluate her today, and see if she is okay for discharge. cc: Gonzalo Smith MD
[2019-01-11 11:23] VITALS: BP 128/68
[2019-01-11] MEDS ORDERED: VANCOMYCIN 2,200 MG in NS 500 ML IV SCH (16:00)
--- NOTE | 2019-01-12 07:01 | DISCHARGE SUMMARY ---
ADMISSION DATE: 01/07/2019 DISCHARGE DATE: 01/11/2019 DISPOSITION: Home with home health. FOLLOW-UP: Dr. Foster. CONSULTATION DURING THIS ADMISSION: Surgery was consulted. Patient was seen by Dr. Foster. INVASIVE PROCEDURES DONE DURING THIS ADMISSION: Incision and drainage of soft tissue infection of mid left back was done by Dr. Foster on 01/09/2019. MICROBIOLOGY DATA OF SIGNIFICANCE: Culture was positive for MSSA. IMAGING STUDIES OF SIGNIFICANCE: Ultrasound of the left upper back was negative for DVT. I did mention of possible abscess. ADMISSION DIAGNOSES: 1. Cellulitis. 2. Diabetes. 3. Acute kidney injury related to cellulitis. 4. Hypertension. DIAGNOSES AT TIME OF DISCHARGE: 1. Skin and soft tissue abscess associated with cellulitis to the left mid back. Patient is status post I and D. Cultures positive for MSSA. The patient will be on Keflex p.o. antibiotics. 2. Uncontrolled diabetes mellitus with presenting A1c of 10.4. The patient is on insulin regimen. 3. Clinical volume depletion improved. 4. Hypertension controlled. 5. Dyslipidemia controlled. DISCHARGE MEDICATIONS: 1. Simvastatin 40 mg p.o. at bedtime. 2. Hyzaar 1 tablet daily. 3. Amlodipine 10 mg p.o. daily. 4. Omeprazole 20 mg p.o. daily. 5. Tramadol 50 mg p.o. q.8 hours. 6. Keflex 500 p.o. q.6 for 1 week. 7. Glargine 45 units subcutaneous b.i.d. 8. [place] 5 mg p.o. q.4h p.r.n. PRESENTING COMPLAINT: Cellulitis. HISTORY OF PRESENTING COMPLAINT: Ms. Gaston is a 38-year-old female with a history of diabetes mellitus and hypertension, who came to the emergency department because of swelling to the left mid back, which has been going on for some couple of days. Upon presenting, she was evaluated. There was concern for abscess so an ultrasound was done to the back. The patient was admitted for further medical care. HOSPITAL COURSE: Ms. Gaston was admitted to the medical floor. Diabetes was controlled. She was adequately fluid resuscitated. Surgery was consulted because of concern of abscess. Ms. Gaston was seen by Dr. Foster, and a decision was made to take her to the OR. I and D was done and debridement of necrotic tissues were all done. Culture from the surgical specimen grew MSSA. Ms. Gaston was initially started on clindamycin and vancomycin was added. After getting the culture report, we have transition her to oral Keflex 500 every 6 hours for a total of 7 days. Ms. Gaston is now clinically stable for discharge. She is going to follow up with Dr. Foster within a week. She is from a home health agency so she has been advised to get somebody to help her do her wound dressings. Ms Gaston glucose was also adequately titrated on insulin. Her glucose this morning is 196. Her physical exam is unremarkable except for the left mid back where there is a dressing over the wound. We think she is stable for discharge. All the discharge instructions have been discussed with her. TIME SPENT: Time spent for discharge is 35 minutes. cc: MD Leonora Trivedi MD
== END 2019-01-11 13:43 | disposition home or self-care (01) | DRG 580 ==
LOC: ED 09:31 → SUATTDRO 13:39 → 3N 13:39
PROVIDERS: ATTEND Internal Medicine
PROC: GE.EXPL (2019-01-10 15:28)
CPT/HCPCS: 76882; 80048; 80053; 80061; 81001; 82009; 82550; 82948; 83036; 83605; 83735; 84484; 85025; 85610; 85730; 87040; 87070; 87075; 87077; 87186; 94761; 96361; 96365; 99285; A9270; J1650; J1815; J2250; J2270; J2370; J3010; J3370; J7030; J7040; J7120; S0077; XXXXX